=== PATIENT | male | born 2000 | race Caucasian/White ===

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

== ENCOUNTER 2021-04-28 10:58 | Emergency (ER) | payer OTHER ==
[2021-04-28 11:14] VITALS: BP 157/90
--- NOTE | 2021-04-28 11:48 | ED Physician Documentation ---
PD HPI LOWER EXT INJURY - Stated complaint Stated Complaint: RT KNEE PX - Chief complaint Chief Complaint: Ext Problem - History obtained from History obtained from: Patient - History of Present Illness PD HPI LOW EXT INJURY LOCATION: Right, Knee Type of injury: Fall - Additional information Additional information: Fell on right knee 1 hour ago while playing basketball. Fords a pop with medial twist. Pain 7/10. Able to walk. Swelling. No other injury. Review of Systems Constitutional: reports: Reviewed and negative Eyes: reports: Reviewed and negative Ears: reports: Reviewed and negative Nose: reports: Reviewed and negative Throat: reports: Reviewed and negative PD PAST MEDICAL HISTORY - Past Medical History Past Medical History: No - Past Surgical History Past Surgical History: No - Present Medications Home Medications: Ambulatory Orders Medication Instructions Recorded Confirmed No Known Home Medications 04/28/21 04/28/21 - Allergies Allergies/Adverse Reactions: Allergies Allergy/AdvReac Type Severity Reaction Status Date / Time No Known Drug Allergies Allergy Verified 04/28/21 11:14 - Social History Does the pt smoke?: Yes Smoking Status: Current every day smoker Does the pt drink ETOH?: No Does the pt have substance abuse?: No PD ED PE NORMAL - Vitals Vital signs reviewed: Yes - General General: Alert and oriented X 3, No acute distress - Extremities Extremities: Other (Tender and swollen anterior/medial. Limited ROM d/t pain. Ligamentous testnig is normal.) - Neuro Neuro: Alert and oriented X 3, Normal speech Results - Vitals Vitals: Vital Signs - 24 hr 04/28/21 11:06 Temperature 36.8 C Heart Rate 86 Respiratory 16 Rate Blood Pressure 157/90 H O2 Saturation 97 Oxygen O2 Source Room air - Rads (name of study) R knee Radiology: EMP read contemporaneously PD MEDICAL DECISION MAKING - ED course ED course: 20-year-old with an avulsion fracture of the right patella after a fall. He declined prescription pain medication. He was placed in knee immobilizer and advised on the need for orthopedic follow-up. Departure - Departure Disposition: 01 Home, Self Care Clinical Impression: Right patella fracture Qualifiers: Encounter type: initial encounter Fracture type: closed Fracture morphology: other fracture Qualified Code(s): S82.091A - Other fracture of right patella, initial encounter for closed fracture Condition: Good Record reviewed to determine appropriate education?: Yes Instructions: ED Fx Patella Follow-Up: Landon Vela MD [Provider Admit Priv/Credential] - Comments: As discussed, it appears that you probably have a small avulsion fracture of the patella of your right knee. You may walk and bear weight, but you should keep the splint on until you follow-up with orthopedics, call them Saturday for an appointment in the clinic. Tylenol or ibuprofen as needed for pain. Return for new or worsening symptoms.
--- NOTE | 2021-04-28 12:08 | XRAY Report ---
PROCEDURE: Knee 4 View RT INDICATIONS: Knee injury TECHNIQUE: 4 views of the right knee(s) were acquired. COMPARISON: None. FINDINGS: BONES/JOINT: Ossific density along the medial aspect of the patella, which may reflect avulsion injur y. Lateral subluxation of the patella. The remaining visualized osseous structures appear maintained. Suprapatellar soft tissue density, suggesting effusion. SOFT TISSUES: Diffuse edema. IMPRESSION: 1.Ossific density adjacent to the medial patella, concerning for avulsion injury. Reviewed by: Rico Golden MD on 04/28/2021 12:07 PM PDT Approved by: Rico Golden MD on 04/28/2021 12:07 PM PDT Station ID: [id number]
== END 2021-04-28 12:30 | disposition home or self-care (01) ==
LOC: ED 10:58
DX: S82.091A Other fracture of right patella, initial encounter for closed fracture (principal); W18.39XA Other fall on same level, initial encounter; Y93.67 Activity, basketball; Y92.310 Basketball court as the place of occurrence of the external cause; F17.200 Nicotine dependence, unspecified, uncomplicated
CPT/HCPCS: 99283

== ENCOUNTER 2021-05-03 15:58 | Outpatient (CLI) | payer OTHER ==
--- NOTE | 2021-05-03 17:10 | MRI Report ---
PROCEDURE: Knee RT W/O INDICATIONS: DISPLACED OSTEOCHONDRAL FX OF RIGHT PATELLA TECHNIQUE: Noncontrast sagittal PD fast spin echo and T2 fast spin echo with fat saturation, sagittal 3-D gradie nt sequence with fat saturation; coronal T1 spin echo and PD fast spin echo with fat saturation, and axial PD fast spin echo with fat saturation through the knee. COMPARISON: None. Findings: Medial meniscus: No surface communication/tear. Lateral meniscus: No surface communication/tear. LIGAMENTS/TENDONS: Patellar tendon: Intact. Distal quadriceps tendon: Intact. Hoffa's fat pad: No evidence of fibrosis or mass. PCL: Intact. ACL: Intact. Lateral collateral ligament complex: No significant abnormality. Posterolateral corner: No significant abnormality. Medial collateral ligament: No significant abnormality.. MARROW: T2 hyperintense signal in the medial aspect of the patella with disruption of the medial ret inaculum. CARTILAGE: 1.7 cm defect of the patellar hyaline cartilage. Signal heterogeneity minimal surface irre gularity of the medial and lateral hyaline cartilage. Muscles: No significant edema or atrophy. Joint effusion/Pacheco's cyst: Large joint effusion. No significant popliteal fossa cyst. Subcutaneous soft tissues: Diffuse edema. IMPRESSION: 1. Defect of the hyaline cartilage overlying the patella, measuring approximately 1.7 cm. 2. Contusion in the medial aspect of the patella with disruption of the medial retinaculum. 3. Large joint effusion. Reviewed by: Rico Golden MD on 05/03/2021 5:09 PM PDT Approved by: Rico Golden MD on 05/03/2021 5:09 PM PDT Station ID: [id number]
== END 2021-05-03 15:59 | disposition home or self-care (01) ==
LOC: DI 15:58
PROVIDERS: ATTEND Orthopaedic Surgery
DX: S82.011A Displaced osteochondral fracture of right patella, initial encounter for closed fracture (principal); M22.41 Chondromalacia patellae, right knee; S80.01XA Contusion of right knee, initial encounter; M25.461 Effusion, right knee

== ENCOUNTER 2021-05-12 15:00 | Outpatient (CLI) | payer OTHER | END 2021-05-12 23:59 | disposition home or self-care (01) | LOC: LAB.N 15:00 | PROVIDERS: ATTEND Orthopaedic Surgery | DX: Z01.812 Encounter for preprocedural laboratory examination (principal); S82.011A Displaced osteochondral fracture of right patella, initial encounter for closed fracture; Z20.822 Contact with and (suspected) exposure to COVID-19 ==

== ENCOUNTER 2021-05-18 11:18 | Day surgery (SDC) | payer OTHER ==
[~2021-05-18 11:18] MED LIST: BACITRACIN ZINC OINT 1 PACKET TOP ONE; BUPIVACAINE 0.5% PF 10 ML VIAL ONE; EPINEPHrine 1 MG/ML AMP ONE
[2021-05-18] MEDS ORDERED: ACETAMINOPHEN 1,000 MG/100 ML 100 ML IV ONE (11:30)
[2021-05-18] MEDS ORDERED: CEFAZOLIN SODIUM IN 0.9 % NACL 2 GM/100 ML BAG IV ONE (11:30)
[2021-05-18] MEDS ORDERED: CELECOXIB 100 MG CAPSULE PO ONE (11:31)
[2021-05-18] MEDS ORDERED: LACTATED RINGERS 1,000 ML IV ONE ×2 (11:49→15:12)
[2021-05-18] MEDS ORDERED: MIDAZOLAM 2 MG/2 ML VIAL ONE (12:42)
[2021-05-18] MEDS ORDERED: PROPOFOL 200 MG/20 ML VIAL IVP ONE (12:42)
[2021-05-18] MEDS ORDERED: LIDOCAINE-MPF 2% 5 ML VIAL ONE (12:43)
[2021-05-18] MEDS ORDERED: fentaNYL 100 MCG/2 ML VIAL ONE ×2 (12:43→15:28)
--- NOTE | 2021-05-18 12:44 | ANESTHESIA ---
Pre-Anesthesia VS, & Labs - Diagnosis knee pain - Procedure right knee arthroscopy Vital Signs: Temp Pulse Resp BP Pulse Ox 36.5 C 106 H 19 142/94 H 98 05/18/21 11:31 05/18/21 11:31 05/18/21 11:31 05/18/21 11:31 05/18/21 11:31 Height: 6 ft 1 in Weight (kg): 133.5 kg Body Mass Index: 38.8 BMI Classification: Obese - NPO >8 hours Home Medications and Allergies No Known Home Medications 04/28/21 Allergies/Adverse Reactions: Allergies Allergy/AdvReac Type Severity Reaction Status Date / Time No Known Drug Allergies Allergy Verified 04/28/21 11:14 Anes History & Medical History - Anesthetic History Anesthesia Complications: reports: No previous complications - Medical History Cardiovascular: reports: None Pulmonary: reports: None Gastrointestinal: reports: None Urinary: reports: None Musculoskeletal: reports: None Endocrine/Autoimmune: reports: None Skin: reports: Psoriasis Smoking Status: Current every day smoker ([facility]C only) History of Cancer?: No Exam General: Alert, Oriented x3 Dental: WNL Mouth Opening: Greater than 4 Fingerbreadths Neck Mobility: Normal Mallampati classification: III Plan Anesthesia Type: General, Adductor Block (if surgeon requests) Consent for Procedure(s) Verified and Reviewed: Yes Code Status: Attempt Resuscitation ASA classification: 2-Mild systemic disease Is this case an emergency?: No
[2021-05-18] MEDS ORDERED: ATROPINE ABBOJECT 1 MG/10 ML SYRINGE IVP PRN (12:46)
[2021-05-18] MEDS ORDERED: HYDROmorphone 0.5 MG/0.5 ML SYRINGE IVP PRN (12:46)
[2021-05-18] MEDS ORDERED: ePHEDrine 50 MG/ML VIAL IVP PRN (12:46)
[2021-05-18] MEDS ORDERED: MORPHINE 2 MG/ML CARPUJECT IVP PRN (12:46)
[2021-05-18] MEDS ORDERED: fentaNYL 100 MCG/2 ML VIAL IVP PRN (12:46)
[2021-05-18] MEDS ORDERED: ONDANSETRON 4 MG/2 ML VIAL IVP PRN (12:46)
[2021-05-18] MEDS ORDERED: NALOXONE 0.4 MG/ML VIAL IVP PRN (12:46)
[2021-05-18] MEDS ORDERED: METOCLOPRAMIDE 10 MG/2 ML VIAL IVP PRN (12:46)
[2021-05-18] MEDS ORDERED: LACTATED RINGERS 1,000 ML IV SCH (13:00)
[2021-05-18] MEDS ORDERED: DEXMEDETOMIDINE 200 MCG/2 ML VIAL ONE (13:37)
[2021-05-18] MEDS ORDERED: ceFAZolin 1 GM VIAL ONE (13:45)
[2021-05-18] MEDS ORDERED: DEXAMETHASONE 4 MG/ML VIAL ONE (13:51)
[2021-05-18] MEDS ORDERED: ONDANSETRON 4 MG/2 ML VIAL ONE (13:51)
[2021-05-18] MEDS ORDERED: HYDROmorphone 1 MG/ML CARPUJECT ONE (13:53)
[2021-05-18] MEDS ORDERED: EPINEPHrine 1 MG/ML AMP IR ONE (13:56)
[2021-05-18] MEDS ORDERED: KETOROLAC 30 MG/ML VIAL ONE (14:10)
[2021-05-18] MEDS ORDERED: BUPIVACAINE 0.5% PF 10 ML VIAL IM ONE ×2 (14:25)
--- NOTE | 2021-05-18 15:03 | OPERATIVE REPORT ---
Operative Report - General Procedure Date: 05/18/21 Planned Procedure: Arthroscopy right knee with removal or repair of osteochondral fracture patellofemoral joint Pre-Op Diagnosis: Acute patellar dislocation right knee with osteochondral fracture Procedure Performed: Arthroscopy right knee, removal of loose body lateral femoral trochlea, chondroplasty lateral femoral trochlea and microfracture patella full-thickness articular cartilage defect Post Op Diagnosis: Same as preoperative diagnosis - Procedure Note Primary Surgeon: Landon Vela MD Secondary Surgeon: Jareth DE LEON Anesthesia Technique: General ET tube Estimated Blood Loss (mL): 5 (Minimal blood loss) Indications: This is a 20-year-old obese young man who injured his right knee playing basketball. He sustained an acute patellar dislocation of the right knee, first-time dislocation. He sustained a lateral dislocation. He has joint hyper mobility with genu recurvatum bilateral and bilateral genu valgum. 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 He had preoperative x-rays which suggested a osteochondral fracture. He also had a preoperative MRI scan which was abnormal for patellofemoral defect. Findings: He has symmetrical stability of both knees but he does have genu recurvatum and genu valgum bilaterally. This is in association with a joint hypermobility syndrome and morbid obesity. His arthroscopic findings were primarily abnormal to the patellofemoral joint. His cruciate ligaments were intact, both menisci intact, articular surfaces of tibiofemoral joint normal. He had a hemarthrosis that was mostly resolved on entry of the suprapatellar pouch. There was hemorrhagic synovitis within the suprapatellar pouch. After clearing the hemarthrosis and synovitis, a 1 cm osteochondral fragment that was still partially attached to the lateral femoral trochlea was noted in addition to full-thickness articular cartilage loss and damage to the adjacent lateral femoral trochlea and medial patellar facet. There was a 2 cm defect to the patellar articular surface that was debrided to a stable border. Complications: None - Other Other Information/Narrative: After satisfactory anesthesia had been obtained, the patient was placed in a supine position. The right lower extremity was prepped and draped in a sterile manner in the usual fashion. A tourniquet was not utilized because of the extremely large conical thigh. A thigh post was applied to the operating room table. His knee was tested for stability under anesthesia which was very good but symmetrically loose jointed with valgus and recurvatum. A timeout procedure was performed by the entire operating room team and all were in agreement. Outflow established through a superior lateral portal. The diagnostic arthroscope was inserted with an anterolateral portal. An anteromedial portal was also made. The anteromedial portal was used for a working portal. The [place] 4 mm 30 degree of black diagnostic arthroscope in conjunction with [employer] video camera was used throughout the procedure. Inflow was brought to the arthroscope using the [employer] arthroscopic pump. Complete diagnostic arth roscopy was performed with the findings noted above above. There is a suprapatellar pouch was debrided with a full-radius kylee and also the radiofrequency probe, 50 degree made by [employer]. There is a osteochondral loose fragment was still partially attached and the shaver was applied directly to this fragment which measured about a centimeter. This was debrided to about 3 mm when it became loose and was lodged within the lateral gutter. This loose fragment was trapped by the outflow cannula and a accessory portal was made to remove the small fragment. The full-thickness defects were noted to the lateral femoral trochlea and the patella. These were debrided to a stable rim and microfracture was done to the patella with the angled Ar[employer] power PICC. Multiple holes were placed within the patella. This allowed for punctate bleeding from the patella. The joint was thoroughly lavaged. The incision sites were infiltrated with half percent Marcaine without epinephrine; a total of10 cc. Incision sites were closed with3-0 nylon. Dry sterile dressing and Miguel wrap was applied to the right knee. He received 3 g of Ancef prior to the procedure and tolerated the procedure well. A physician construction project assistant was utilized to help with manipulation of the knee, arthroscopic instrumentation, wound closure and dressing.
[2021-05-18] MEDS ORDERED: oxyCODONE 5 MG TABLET PO PRN (15:12)
[2021-05-18] MEDS ORDERED: KETOROLAC 15 MG/ML VIAL IVP STA (15:12)
[2021-05-18] MEDS ORDERED: HYDROmorphone 0.5 MG/0.5 ML SYRINGE ONE (15:28)
[2021-05-18] MEDS ORDERED: KETOROLAC 15 MG/ML VIAL ONE (15:39)
--- NOTE | 2021-05-18 15:54 | ANESTHESIA POST OP EVALUATION ---
Anesthesia Post Eval - Post Anesthesia Eval Vitals: Last Vital Signs Temp 36.8 C 05/18/21 15:50 Pulse 81 05/18/21 15:50 Resp 12 05/18/21 15:50 BP 128/81 H 05/18/21 15:50 Pulse Ox 99 05/18/21 15:50 CV Function Including HR & BP: Stable Pain Control: Satisfactory (pain 3/10 after dilaudid. Surgeon refused our offer to give patient adductor canal block.) Nausea & Vomiting: Negative Mental Status: Baseline Respiratory Status: Airway Patent Hydration Status: Satisfactory Anesthesia Complications: None
[2021-05-18] MEDS ORDERED: oxyCODONE 5 MG TABLET ONE (16:17)
[2021-05-18 16:21] VITALS: BP 129/85
== END 2021-05-18 11:19 | disposition home or self-care (01) ==
LOC: SDS 11:18
PROVIDERS: ATTEND Orthopaedic Surgery
DX: S82.011A Displaced osteochondral fracture of right patella, initial encounter for closed fracture (principal); M21.861 Other specified acquired deformities of right lower leg; M21.061 Valgus deformity, not elsewhere classified, right knee; M25.061 Hemarthrosis, right knee; E66.01 Morbid (severe) obesity due to excess calories; Z68.38 Body mass index [BMI] 38.0-38.9, adult; M65.861 Other synovitis and tenosynovitis, right lower leg
CPT/HCPCS: 29879; A9270; C1713; J0131; J0690; J1170; J7120